=== PATIENT | male | born 1995 | race African-American/Black ===

== ENCOUNTER 2018-09-10 20:38 | Emergency (ER) | payer SELFPAY ==
[~2018-09-10] VITALS: Ht 188 cm; Wt 167.8 kg
[2018-09-10] MEDS ORDERED: KETOROLAC TROME10 MG PO (21:10)
--- NOTE | 2018-09-10 21:26 | Diagnostic Imaging Report ---
EXAMINATION: CXR 2 VIEW - HOPD INDICATION: Chest pain (left) for 6 weeks COMPARISON: None FINDINGS: PA and lateral views TUBES and LINES: None. LUNGS: Lungs are well inflated. There is no evidence of pneumonia or pulmonary edema. PLEURA: No pleural effusion or pneumothorax. HEART AND MEDIASTINUM: The cardiomediastinal silhouette is unremarkable.. BONES AND SOFT TISSUES: No focal osseous lesions. Soft tissues are unremarkable. UPPER ABDOMEN: No free air under the diaphragm. IMPRESSION: No acute thoracic abnormality. Signed by: Dr. Luanne Kenney MD on 09/10/2018 9:23 PM
[2018-09-10] MEDS ORDERED: LISINOPRIL10 MG PO (21:43)
== END 2018-09-10 22:08 | disposition home or self-care (01) ==
LOC: FSED 20:38
DX: I10 Essential (primary) hypertension (principal); Z86.711 Personal history of pulmonary embolism
CPT/HCPCS: 71046; 80048; 80076; 81003; 82553; 84484; 85025; 93005; 99283